=== PATIENT | male | born 1945 | race Caucasian/White ===

== ENCOUNTER 2025-03-01 09:12 | Day surgery (SDC) | payer MEDICARE ==
[2025-02-22 10:49] LABS: MEAN PLATELET VOLUME 7.0 FL (7.4-10.4); PRE OP HEMATOCRIT 42.5 % (42.0-52.0); PRE OP HEMOGLOBIN 14.4 g/dL (14.0-17.9); PRE OP PLATELET COUNT 251 X10'3 (140-440); PRE OP WHITE BLOOD COUNT 9.4 10'3 (4.8-10.8); RED CELL DISTRIBUTION WIDTH 13.1 % (11.5-14.5)
--- NOTE | 2025-02-22 11:05 | ELECTROCARDIOGRAPH REPORT ---
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 Anselmo Cherry Measurements Intervals [place] Rate: 64 P: 41 RI: 177 QRS: -4 QRSD: 96 T: 42 QT: 402 QTc: 415 Interpretive Statements Sinus rhythm Abnormal R-wave progression, early transition Electronically Signed On 02-26-2025 7:03:[address] Anselmo Cehrry Please click the below link to view image of tracing.
[2025-02-22 11:23] LABS: CREATININE 1.00 MG/DL (0.60-1.10); PRE OP ALT 16 U/L (30-65); PRE OP ANION GAP 8 (8-16); PRE OP AST 13 U/L (10-37); PRE OP BILIRUB, TOTAL 0.7 MG/DL (0.0-1.0); PRE OP GLUCOSE 97 MG/DL (70-104); PRE OP POTASSIUM 4.5 MMOL/L (3.4-5.1); PRE OP SODIUM 141 MMOL/L (135-145); TOTAL CARBON DIOXIDE 26.5 MMOL/L (24-32); eGFR 72 ML/MIN
[~2025-03-01] VITALS: Ht 177.8 cm; Wt 113.7 kg
[2025-03-01] VITALS (7 sets, daily range): BP systolic 112–153; BP diastolic 62–83; PULSE 61–88; RESP 10–21; TEMP 96.3; O2SAT 94–98
[2025-03-01] MEDS: DOCUMENT DATE & TIME OF BETA-BLOCKER PO ONE (04:30)
[~2025-03-01 09:12] MED LIST: ALBUTEROL INH INH; ATOR20TA PO; FLUT1DIS20 INH; PROP60CA37 PO; TAMS-55 PO; TIRZ7.5P3 SQ; albuterol 2.5 MG/3 ML nebule NEB PRN
[2025-03-01] MEDS: ringers solution, lacted 1,000 ML IV SCH (10:13)
[2025-03-01] MEDS: ceFAZolin 2gm/dext,iso 50mL 50 ML IV ONE (10:13)
[2025-03-01] MEDS ORDERED: BUPIVAcaine 2.5mg/ml inj 50ml vial (contains preservative) ONE (10:32)
[2025-03-01] MEDS ORDERED: LIDOcaine 1% 30ml preserv. free vial ONE (10:32)
[2025-03-01] MEDS ORDERED: BUPIVAcaine/PF 2.5mg/ml (0.25%) 10ml vial ONE (10:34)
[2025-03-01] MEDS ORDERED: BUPIVACAINE liposomal/PF 13.3 MG/ML 10mL vial IM ONE (10:35)
[2025-03-01] MEDS ORDERED: hydrALAZINE 20mg/ml inj. IV PRN (12:35)
[2025-03-01] MEDS ORDERED: HYDROmorphone/PF 0.2 MG/ML SYRINGE IV PRN ×2 (12:35)
[2025-03-01] MEDS ORDERED: ondansetron/PF 4mg/2ml inj IV PRN (12:35)
[2025-03-01] MEDS ORDERED: labetalol 20mg/4ml (5mg/ml) syringe IV PRN (12:35)
[2025-03-01] MEDS ORDERED: acetaminophen 1,000mg/100ml IV 100 ML IV PRN (12:35)
[2025-03-01] MEDS ORDERED: ringers solution, lacted 1,000 ML IV SCH (12:35)
[2025-03-01] MEDS ORDERED: morphine 4 MG/ML inj SYRINge IV PRN (12:35)
[2025-03-01] MEDS ORDERED: oxyCODONE/APAP 5-325mg tablet PO PRN (12:40)
--- NOTE | 2025-03-01 12:43 | OPERATIVE REPORT ---
Operative Report Providers to CC CC: LANDON MARVIN MD ~ Date of Procedure: Mar 01, 2025 Pre-Operative Diagnosis: Incisional hernia Post-Operative Diagnosis 3 cm incisional hernia Procedure Performed Robotic assisted, laparoscopic 3 cm incisional hernia repair with mesh Bilateral transversus abdominis plane nerve blocks by injection using 266 mg of Exparel Surgeon: Landon Marvin MD FACS Top Collar Maker None Anesthesiologist: Norman Dash Type of Anesthesia: General Findings: 3 cm fascial defect associated with a surgical scar in the abdominal midline/epigastrium Wound class I Complications None Prosthetics\Implants used: 12 cm diameter coated polyester mesh Estimated Blood Loss: Minimal Specimen Removed: None Description of Procedure: Patient was brought to the operating room and identified by the nursing staff and the attending physician. Patient was placed supine and a general anesthesia was induced. Preoperative antibiotics were given. The abdomen was prepped and draped in the standard sterile fashion. Through a left subcostal stab incision the abdomen was accessed with a Veress needle technique. Abdomen was insufflated without incident. The incision was lengthened to accommodate a 12 mm optical trocar and the abdomen was entered under laparoscopic visualization. The abdomen was surveyed laparoscopically. Omentum was tented up to the anterior abdominal wall and herniated through an obvious fascial defect. Under laparoscopic visualization, robotic trochars were placed in the left lateral and left lower quadrant. The da Franko robotic arm was docked to the patient and instruments guided intra-abdominally under laparoscopic visualization. Omentum was mobilized out of a small hernia sac associated with a 3 cm fascial defect. Fascial defect(s) were then reapproximated with running, nonabsorbable, 0V lock suture. Good fascial apposition was obtained without significant tension. A coated polyester mesh was then fixed to the anterior abdominal wall with running, absorbable, 2/0, V lock suture. Mesh laid without wrinkles or folds. The mesh measured 12 cm in diameter The da Franko instruments were then removed and the robot undocked from the patient. Bilateral transversus abdominis plane nerve blocks by injection were then placed under laparoscopic visualization using a combination of Marcaine and 266 mg of Exparel. The left subcostal trocar was removed and its fascia closed percutaneously with 0 Vicryl suture under laparoscopic visualization. Remaining trochars were removed after the abdomen was allowed to deflate. Skin was closed at all sites with 4-0 Monocryl sutures and dressed with sterile dressings. Patient was awakened and taken to the postanesthesia care unit in stable condition. Counts repoted as correct: Yes LANDON MARVIN MD Mar 01, 2025 12:43
== END 2025-03-01 13:09 | disposition home or self-care (01) ==
LOC: PAS 09:12 → EDBD 12:45 → PAS 13:09
PROVIDERS: ATTEND Surgery
DX: K43.2 Incisional hernia without obstruction or gangrene (principal); R94.31 Abnormal electrocardiogram [ECG] [EKG]; I10 Essential (primary) hypertension; E11.9 Type 2 diabetes mellitus without complications; E66.9 Obesity, unspecified; E78.5 Hyperlipidemia, unspecified; J44.9 Chronic obstructive pulmonary disease, unspecified; G47.33 Obstructive sleep apnea (adult) (pediatric); Z87.891 Personal history of nicotine dependence; Z79.899 Other long term (current) drug therapy; Z90.89 Acquired absence of other organs; Z98.890 Other specified postprocedural states; Z68.36 Body mass index [BMI] 36.0-36.9, adult
CPT/HCPCS: 36415; 49593; 64488; 80053; 82948; 85025; 93005; A4215; A4618; C1781; J0666; J2003; J3490; J7030; J7120; Z7506; Z7508; Z7512; Z7610